=== PATIENT | male | born 1990 | race Caucasian/White ===

== ENCOUNTER 2024-11-06 21:04 | Emergency (ER) | payer OTHER, SELFPAY ==
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
[2024-11-06 21:08] VITALS: BP 120/90; PULSE 84; O2SAT 98
[2024-11-06 21:09] VITALS: BP 117/81; PULSE 73; RESP 16; TEMP 36.6; O2SAT 100; BMI 20.6
--- NOTE | 2024-11-06 21:37 | MHC.EDTECH ---
Belongings list completed and belongings placed in [facility] shelf 4
[2024-11-06 21:50] LABS: MANUAL DIFF FLAG NO
[2024-11-06 21:51] LABS: Hematocrit 38.1 % (42.0-52.0); Hemoglobin 12.4 g/dl (14.0-18.0); Imm Gran Abs Auto 0.02 X10*3/uL (0.00-0.03); Imm Gran Pct Auto 0.3 % (0.0-0.4); Lymphocytes Absolute Auto 1.6 X10*3/uL (1.2-4.9); Mean Corpuscular HGB Conc 32.5 g/dl (31.0-36.0); Mean Corpuscular Hemoglobin 22.6 pg (27.0-33.0); Mean Corpuscular Volume 69.4 fL (80.0-98.0); NRBC Abs Auto 0.000 X10*3/uL (0.0-0.012); NRBC Pct Auto 0.0 /100WBC (0.0-0.2); Platelet Count 305 X10*3/uL (160-400); Red Blood Count 5.49 X10*6/uL (4.60-5.80); White Blood Count 6.3 X10*3/uL (4.8-10.8)
[2024-11-06 22:07] LABS: Acetaminophen LAB < 3 mcg/mL (<30); Alanine Aminotransferase 12 U/L (0-40); Albumin Level 5.1 g/dL (3.5-5.0); Alkaline Phosphatase 63 U/L (39-117); Anion Gap 10 (12-20); Aspartate Amino Transferase 14 U/L (5-37); Blood Urea Nitrogen 15 mg/dL (9-16); Calcium 9.8 mg/dL (8.4-10.2); Carbon Dioxide 28 mmol/L (22-29); Chloride 108 mmol/L (96-108); Creatinine Clr Calc Pharmacy 95.5; Estimated Glomerular Filt Rate > 60; Potassium 3.9 mmol/L (3.3-5.1); Salicylate < 5.0 mg/dL (15-30); Sodium 142 mmol/L (135-145); Total Protein 7.0 g/dL (6.5-8.0)
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
[2024-11-07 06:18] VITALS: BP 100/56; PULSE 54; RESP 18; TEMP 36.8; O2SAT 97
[2024-11-07 06:38] LABS: Appearance Urine Clear; Glucose Urine UA Negative (Negative); PH 5.5 (5.0-9.0); Specific Gravity - Urine >= 1.030 (1.005-1.025)
[2024-11-07 06:48] LABS: Cannabinoid Screen Urine POSITIVE (Not Detect)
[2024-11-07 07:00] VITALS: BP 100/60; PULSE 60; RESP 14; TEMP 36.9; O2SAT 98
--- NOTE | 2024-11-07 07:22 | PC.NURSE ---
Assumed care, report received. Pt is currently sleeping. Breakfast was dropped off in his room.
--- NOTE | 2024-11-07 09:02 | MHC.EDTECH ---
Per steve Hastings, belongings moved to [facility] 4.
--- NOTE | 2024-11-07 13:59 | PC.NURSE ---
Pt wakes late and eats snacks for breakfast. He spends his time pacing non stop and continuos self-dialogue. He remains calm and cooperative. he asks appropriate questions. He meets with the care team in hopes of being discharged.
[2024-11-07 14:26] VITALS: BP 100/60; PULSE 60; RESP 14; TEMP 36.9; O2SAT 98
[2024-11-07 15:04] VITALS: BP 100/60; PULSE 60; RESP 14; TEMP 36.9; O2SAT 98
== END 2024-11-07 15:04 | disposition home or self-care (01) ==
PROVIDERS: Emergency Medicine; Physician Assistant; Emergency Provider Emergency Medicine Emergency Medical Services
DX: F32.A Depression, unspecified (principal); F41.9 Anxiety disorder, unspecified; Z72.0 Tobacco use
CPT/HCPCS: 36415; 70450; 80053; 80143; 80179; 80307; 81001; 82550; 85025; 99284; 99285; S9485

== ENCOUNTER → 2024-11-06 23:35 | Outpatient (BNV) | payer OTHER, SELFPAY | PROVIDERS: Emergency Provider Emergency Medicine; Visit Provider Radiology Diagnostic Radiology | DX: R51.9 Headache, unspecified (principal) | CPT/HCPCS: 70450 ==